=== PATIENT | male | born 1985 | race African-American/Black ===

== ENCOUNTER 2016-11-30 23:19 | Emergency (ER) | payer OTHER | END 2016-11-30 23:30 | disposition left against medical advice (07) | LOC: M ED 23:19 | DX: Z53.29 Procedure and treatment not carried out because of patient's decision for other reasons (principal) ==

== ENCOUNTER 2016-12-05 02:33 | Emergency (ER) | payer OTHER ==
[2016-12-05] MEDS ORDERED: ONDANSETRON 4MG/2ML VIAL (J2405) As Ordered ONE (02:54)
[2016-12-05 03:20] LABS: BASO % 0.2 % (0.0-1.0); EOS # 0.4 K/mm3 (0.0-0.50); EOS % 4.8 % (0.0-3.0); LARGE UNSTAINED CELL # 0.1 K/mm3 (0.0-0.4); LARGE UNSTAINED CELL % 1.4 % (0.0-4.0); LYMPH # 1.2 K/mm3 (1.5-6.5); LYMPH % 13.2 % (24.0-44.0); MEAN CORPUSCULAR HEMOGLOBIN 29.5 pg (27.0-33.0); MEAN CORPUSCULAR HGB CONC 33.7 g/dl (32.0-36.5); MEAN CORPUSCULAR VOLUME 87.5 fl (80.0-96.0); MONO # 0.5 K/mm3 (0.0-0.8); MONO % 5.9 % (0.0-5.0); NEUTROPHILS # 6.7 K/mm3 (1.8-7.7); NEUTROPHILS % 74.4 % (36.0-66.0); PLATELET COUNT, AUTOMATED 291 k/mm3 (150-450); RED CELL DISTRIBUTION WIDTH 12.2 % (11.5-14.5)
[2016-12-05 03:40] LABS: ALKALINE PHOSPHATASE 96 U/L (45-117); ALT/SGPT 31 U/L (12-78); AMYLASE 60 U/L (25-115); ANION GAP 7 MEQ/L (8-16); AST/SGOT 20 U/L (15-37); BILIRUBIN,DIRECT 0.2 MG/DL (0.0-0.2); BILIRUBIN,TOTAL 0.8 MG/DL (0.2-1.0); BLOOD UREA NITROGEN 18 MG/DL (7-18); CALCIUM LEVEL 8.6 MG/DL (8.5-10.1); CARBON DIOXIDE LEVEL 32 MEQ/L (21-32); CHLORIDE LEVEL 105 MEQ/L (98-107); CREATININE FOR GFR 1.08 MG/DL (0.70-1.30); GLOMERULAR FILTRATION RATE > 60.0 (>60); GLUCOSE, FASTING 99 MG/DL (70-105); POTASSIUM SERUM 3.9 MEQ/L (3.5-5.1); SODIUM LEVEL 144 MEQ/L (136-145)
[2016-12-05] MEDS ORDERED: ISOVUE-370 76% 100ML VIAL (Q9967) As Ordered ONE (05:07)
--- NOTE | 2016-12-05 05:50 | REPUSA ---
CLINICAL HISTORY: Abdominal pain. TECHNIQUE: Multiple axial, sagittal and coronal CT images were obtained through the abdomen and pelvi s after administration of intravenous contrast material. COMMENTS: The liver is of uniform attenuation without mass or defect. There is no intra or extrahepatic biliary ductal dilatation. The spleen is normal. The gallbladder is within normal limits. The pancreas is of normal contour and attenuation characteristics. There is no evidence of adrenal mass. Both kidneys demonstrate prompt and equal nephrograms. The kidneys are normal in size, shape and conf iguration. There is no evidence of renal or ureteral mass. No renal or ureteral calculi are identifie d. There is no hydroureter or hydronephrosis. Fluid-filled small and large bowels. No evidence for appendicitis. There is no bowel wall thickening. No evidence for small or large padmini l obstruction. There is no evidence of abdominal ascites or lymphadenopathy. There is no evidence of intrinsic or extrinsic bladder mass. There is no pelvic ascites or lymphadeno faustina. Images of the lung bases show no evidence of pleural or parenchymal mass. There are no pleural effusi ons. The bony structures are free of lytic or blastic lesions. IMPRESSION: Fluid-filled bowel suggestive of enteritis. Thank you for your kind referral of this patient.
[2016-12-05] MEDS ORDERED: HYDROmorphone HCL 1 MG/ML SYRINGE (J1170) As Ordered ONE (06:01)
--- NOTE | 2016-12-05 06:28 | EDDOCDS ---
Physician Documentation [facility] Name: Eddie Bertrand Age: 31 yrs Sex: Male : 1985 Arrival Date: 12/05/2016 Time: 02:33 Bed 6 Private MD: Disposition: 12/05/16 05:56 Discharged to Home/Self Care. Impression: Noninfective gastroenteritis and colitis, unspecified. - Condition is Stable. - Discharge Instructions: Clear Liquid Diet. - Prescriptions for Reglan 10 mg Oral Tablet - take 1 tablet by ORAL route every 6 hours take 30 minutes before meals and at bedtime; 20 tablet. - Medication Reconciliation, Local Pharmacy Hours form. - Follow up: Private Physician; When: Call to arrange an appointment; Reason: Recheck today's complaints. - Problem is new. - Symptoms have improved. Historical: - Allergies: "A med you gave me"; - Home Meds: 1. none - PMHx: none; - PSHx: Hernia repair- Umbilical; - Social history: Smoking status: Patient states former smoker of tobacco. No barriers to communication noted, The patient speaks fluent Monegasque, Speaks appropriately for age. - Family history: Not pertinent. - : The pt / caregiver states he / she is not on anticoagulants. Home medication list is obtained from the patient. - Exposure Risk Screening:: None identified. Vital Signs: 12/05 02:42 BP 154 / 86; Pulse 87; Resp 20; Temp 99.3(O); Pulse Ox 97% on R/A; Weight 99.79 kg / kmg1 220 lbs (R); Height 6 ft. 4 in. (193.04 cm) (R); Pain 10/10; 06:03 BP 149 / 68; Pulse 72; Resp 18; Temp 98.4; Pulse Ox 99% ; Pain 2/10; kb5 06:26 Pain 0/10; js15 02:42 Body Mass Index 26.78 (99.79 kg, 193.04 cm) kmg1 MDM: 03:08 IV Saline Lock ordered. cs11 03:08 NS 0.9% 1000 ml IV at bolus once ordered. cs11 03:08 Ondansetron 4 mg IVP once ordered. cs11 03:08 CBC with Diff Ordered. EDMS 03:08 MED Profile Ordered. EDMS 03:08 Liver Profile Ordered. EDMS 03:08 Amylase Ordered. EDMS 03:08 Lipase Ordered. EDMS 04:27 Financial registration complete. [facility] 04:35 [facility] Payment Agreement was scanned into [email or web address] and attached to record. [facility] 05:01 CBC with Diff Reviewed. 11 05:01 MED Profile Reviewed. cs11 05:01 Liver Profile Reviewed. cs11 05:01 Amylase Reviewed. 11 05:01 Lipase Reviewed. [facility] 05:02 CT ABD & PELVIS: IV Contrast Only Ordered. EDMS 06:01 Dilaudid - HYDROmorphone 0.5 mg IVP once ordered. cs11 Administered Medications: 03:05 Drug: Ondansetron 4 mg [ondansetron HCl 2 mg/mL intravenous solution (2 mL)] Route: js15 IVP; Site: right antecubital; 03:20 Drug: NS 0.9% 1000 ml [sodium chloride 0.9 % intravenous solution] Route: IV; Rate: js15 bolus; Site: right antecubital; 05:30 Follow up: IV Status: Completed infusion; IV Intake: 1000ml js15 06:04 Drug: Dilaudid - HYDROmorphone 0.5 mg [hydromorphone 1 mg/mL injection syringe (0.5 js15 mL)] Route: IVP; Site: right antecubital; 06:26 Follow up: Pain 0/10 Adult; Response: Pain is resolved js15 Signatures: Dispatcher [employer] EDSD Merlyn Machado, RN RN kmg1 Phoenix Shipley, DO [facility] Shruti Ibarra [facility] Karen LoraRN RN js15 The chart was reviewed and I authenticate all verbal orders and agree with the evaluation and treatment provided.Attachments: 04:35 [facility] Payment Agreement [facility] MTDD
--- NOTE | 2016-12-05 06:28 | EDDOCDS ---
Nurse's Notes [facility] Name: Eddie Bertrand Age: 31 yrs Sex: Male : 1985 Arrival Date: 12/05/2016 Time: 02:33 Bed 6 Private MD: Diagnosis: Noninfective gastroenteritis and colitis, unspecified Presentation: 12/05 02:39 Presenting complaint: Patient states: Abdominal distention, cramps, vomiting for 4-5 kmg1 hours. Risk factors: the patient reports not having a history of previous torsion. Suicide/Homicide risk assessment- the patient denies having any suicidal and/or homicidal ideations and does not present with any other emotional, behavioral or mental health complaints. 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 Transition of care: patient was not received from another setting of care. 02:39 Acuity: CHARLES Level 3 kmg1 02:39 Method Of Arrival: Walkin/Carried/Asstd kmg1 03:08 Adult Sepsis Screening: The patient does not have new or worsening altered mentation. js15 Patient's respiratory rate is less than 22. Systolic blood pressure is greater than 100. Patient has a qSOFA score of 0- Negative Sepsis Screen. Triage Assessment: 02:42 General: Appears uncomfortable, Behavior is cooperative. Pain: Location: epigastric kmg1 area, right upper quadrant and left upper quadrant Pain currently is 10 out of 10 on a pain scale. Quality of pain is described as crampy, sharp, Pain began 4 hours ago Alleviated by nothing. HIV screening NA for this visit Offered previously. GI: Abdomen is distended, Abd is soft X 4 quads Abd is tender to palpation in epigastric area, right upper quadrant and left upper quadrant Reports cramping, vomiting. Historical: - Allergies: "A med you gave me"; - Home Meds: 1. none - PMHx: none; - PSHx: Hernia repair- Umbilical; - Social history: Smoking status: Patient states former smoker of tobacco. No barriers to communication noted, The patient speaks fluent Wolof, Speaks appropriately for age. - Family history: Not pertinent. - : The pt / caregiver states he / she is not on anticoagulants. Home medication list is obtained from the patient. - Exposure Risk Screening:: None identified. Screenin:08 Screening information is obtained from the patient. Fall risk: No risks identified. js15 Assistance ADL's: requires no assistance with activities of daily living. Abuse/DV Screen: The patient / caregiver reports he/she is: not in a situation that causes fear, pain or injury. Nutritional screening: No deficits noted. Advance Directives: There is no active DNR order. home support is adequate. Assessment: 03:08 GI: Abdomen is distended, Reports nausea, vomiting. js15 03:09 General: Appears in no apparent distress, uncomfortable, Behavior is appropriate for 17 age, cooperative. Neurological: Level of Consciousness is awake, alert, obeys commands, Oriented to person, place, time. Respiratory: Airway is patent Respiratory effort is even, unlabored, Respiratory pattern is regular, symmetrical. Derm: Skin is normal. 03:10 GI: Bowel sounds present X 4 quads. Abd is tender to palpation in epigastric area, js15 right upper quadrant and left upper quadrant bloated. 04:15 Reassessment: Patient appears in no apparent distress at this time. Patient states js15 feeling better. Pt resting on stretcher, respirations even and unlabored; skin normal, warm, dry. 05:23 Reassessment: returned with pt from CT scan; pt ambulated to stretcher without js15 assistance or difficulty, gait steady; respirations even and unlabored; skin normal, warm, dry. Vital Signs: 02:42 BP 154 / 86; Pulse 87; Resp 20; Temp 99.3(O); Pulse Ox 97% on R/A; Weight 99.79 kg (R); [facility] [place] Height 6 ft. 4 in. (193.04 cm) (R); Pain 10/10; 06:03 BP 149 / 68; Pulse 72; Resp 18; Temp 98.4; Pulse Ox 99% ; Pain 2/10; kb5 06:26 Pain 0/10; js15 02:42 Body Mass Index 26.78 (99.79 kg, 193.04 cm) [facility] [place] Vitals: 02:42 Log In Time: December 05, 2016 at 02:34. [facility] ED Course: 02:34 Patient visited by Kadie Desai, Jalen. hs2 02:34 Patient moved to Waiting hs2 02:41 Triage Initiated [facility] 02:47 Phoenix Shipley DO is Attending Physician. 11 02:47 Patient visited by Phoenix Shipley DO. 11 02:47 Patient moved to 6 km 03:07 Inserted saline lock: 18 gauge in right antecubital area The patient tolerated the js15 procedure well. 03:08 The patient / caregiver is instructed regarding the plan of care and ED course. js15 03:11 Lipase Sent. js15 03:11 Amylase Sent. js15 03:11 Liver Profile Sent. js15 03:11 MED Profile Sent. js15 03:11 CBC with Diff Sent. js15 03:25 Patient visited by Karen Lora RN. js15 04:34 Patient visited by Lj Ludwig PCA. kb5 04:35 [facility] Payment Agreement was scanned into [employer] and attached to record. [facility] 05:21 Patient visited by Karen Lora RN. js15 06:00 No procedures done that require assistance. js15 06:04 Patient visited by Lj Ludwig PCA. kb5 06:05 CT ABD & PELVIS: IV Contrast Only Returned. EDMS Administered Medications: 03:05 Drug: Ondansetron 4 mg [ondansetron HCl 2 mg/mL intravenous solution (2 mL)] Route: js15 IVP; Site: right antecubital; 03:20 Drug: NS 0.9% 1000 ml [sodium chloride 0.9 % intravenous solution] Route: IV; Rate: js15 bolus; Site: right antecubital; 05:30 Follow up: IV Status: Completed infusion; IV Intake: 1000ml js15 06:04 Drug: Dilaudid - HYDROmorphone 0.5 mg [hydromorphone 1 mg/mL injection syringe (0.5 js15 mL)] Route: IVP; Site: right antecubital; 06:26 Follow up: Pain 0/10 Adult; Response: Pain is resolved js15 Intake: 05:30 IV: 1000.00ml; Total: 1000.00ml. js15 Order Results: Lab Order: CBC with Diff; SPEC'M 12/05/16 03:05 Test: WHITE BLOOD COUNT; Value: 9.0; Range: 4.0-10.0; Units: K/mm3; Status: F Test: RED BLOOD COUNT; Value: 5.29; Range: 4.30-6.10; Units: M/mm3; Status: F Test: HEMOGLOBIN; Value: 15.6; Range: 14.0-18.0; Units: g/dl; Status: F Test: HEMATOCRIT; Value: 46.3; Range: 42.0-52.0; Units: %; Status: F Test: MEAN CORPUSCULAR VOLUME; Value: 87.5; Range: 80.0-96.0; Units: fl; Status: F Test: MEAN CORPUSCULAR HEMOGLOBIN; Value: 29.5; Range: 27.0-33.0; Units: pg; Status: F Test: MEAN CORPUSCULAR HGB CONC; Value: 33.7; Range: 32.0-36.5; Units: g/dl; Status: F Test: RED CELL DISTRIBUTION WIDTH; Value: 12.2; Range: 11.5-14.5; Units: %; Status: F Test: PLATELET COUNT, AUTOMATED; Value: 291; Range: 150-450; Units: k/mm3; Status: F Test: NEUTROPHILS %; Value: 74.4; Range: 36.0-66.0; Abnormal: Above high normal; Units: %; Status: F Test: LYMPH %; Value: 13.2; Range: 24.0-44.0; Abnormal: Below low normal; Units: %; Status: F Test: MONO %; Value: 5.9; Range: 0.0-5.0; Abnormal: Above high normal; Units: %; Status: F Test: EOS %; Value: 4.8; Range: 0.0-3.0; Abnormal: Above high normal; Units: %; Status: F Test: BASO %; Value: 0.2; Range: 0.0-1.0; Units: %; Status: F Test: LARGE UNSTAINED CELL %; Value: 1.4; Range: 0.0-4.0; Units: %; Status: F Test: NEUTROPHILS #; Value: 6.7; Range: 1.8-7.7; Units: K/mm3; Status: F Test: LYMPH #; Value: 1.2; Range: 1.5-6.5; Abnormal: Below low normal; Units: K/mm3; Status: F Test: MONO #; Value: 0.5; Range: 0.0-0.8; Units: K/mm3; Status: F Test: EOS #; Value: 0.4; Range: 0.0-0.50; Units: K/mm3; Status: F Test: BASO #; Value: 0.0; Range: 0.0-0.2; Units: K/mm3; Status: F Test: LARGE UNSTAINED CELL #; Value: 0.1; Range: 0.0-0.4; Units: K/mm3; Status: F Lab Order: MED Profile; SPEC'M 12/05/16 03:05 Test: GLUCOSE, FASTING; Value: 99; Range: 70-105; Units: MG/DL; Status: F Test: BLOOD UREA NITROGEN; Value: 18; Range: 7-18; Units: MG/DL; Status: F Test: CREATININE FOR GFR; Value: 1.08; Range: 0.70-1.30; Units: MG/DL; Status: F Test: GLOMERULAR FILTRATION RATE; Value: > 60.0; Range: >60; Status: F Test: SODIUM LEVEL; Value: 144; Range: 136-145; Units: MEQ/L; Status: F Test: POTASSIUM SERUM; Value: 3.9; Range: 3.5-5.1; Units: MEQ/L; Status: F Test: CHLORIDE LEVEL; Value: 105; Range: 98-107; Units: MEQ/L; Status: F Test: CARBON DIOXIDE LEVEL; Value: 32; Range: 21-32; Units: MEQ/L; Status: F Test: ANION GAP; Value: 7; Range: 8-16; Abnormal: Below low normal; Units: MEQ/L; Status: F Test: CALCIUM LEVEL; Value: 8.6; Range: 8.5-10.1; Units: MG/DL; Status: F Test Note: ; Units are mL/min/1.73 m2 Chronic Kidney Disease Staging per NKF: Stage I & II GFR >=60 Normal to Mildly Decreased Stage III GFR 30-59 Moderately Decreased Stage IV GFR 15-29 Severely Decreased Stage V GFR <15 Very Little GFR Left ESRD GFR <15 on GRAIN COMBINE DRIVER Lab Order: Liver Profile; SPEC'M 12/05/16 03:05 Test: AST/SGOT; Value: 20; Range: 15-37; Units: U/L; Status: F Test: ALT/SGPT; Value: 31; Range: 12-78; Units: U/L; Status: F Test: ALKALINE PHOSPHATASE; Value: 96; Range: 45-117; Units: U/L; Status: F Test: BILIRUBIN,TOTAL; Value: 0.8; Range: 0.2-1.0; Units: MG/DL; Status: F Test: BILIRUBIN,DIRECT; Value: 0.2; Range: 0.0-0.2; Units: MG/DL; Status: F Test: TOTAL PROTEIN; Value: 8.0; Range: 6.4-8.2; Units: GM/DL; Status: F Test: ALBUMIN; Value: 4.0; Range: 3.2-5.2; Units: GM/DL; Status: F Test: ALBUMIN/GLOBULIN RATIO; Value: 1.00; Range: 1.00-1.93; Status: F Lab Order: Amylase; SPEC'M 12/05/16 03:05 Test: AMYLASE; Value: 60; Range: 25-115; Units: U/L; Status: F Lab Order: Lipase; SPEC'M 12/05/16 03:05 Test: LIPASE; Value: 201; Range: 73-393; Units: U/L; Status: F Radiology Order: CT ABD & PELVIS: IV Contrast Only Test: CT ABD & PELVIS: IV Contrast Only REASON FOR EXAMINATION: Abdomen Pain; ; CLINICAL HISTORY: Abdominal pain.; TECHNIQUE: Multiple axial, sagittal and coronal CT images were obtained through the abdomen and pelvi; s after administration of intravenous contrast material.; COMMENTS:; The liver is of uniform attenuation without mass or defect. There is no intra or extrahepatic biliary; ductal dilatation. The spleen is normal. The gallbladder is within normal limits. The pancreas is of; normal contour and attenuation characteristics. There is no evidence of adrenal mass.; Both kidneys demonstrate prompt and equal nephrograms. The kidneys are normal in size, shape and conf; iguration. There is no evidence of renal or ureteral mass. No renal or ureteral calculi are identifie; d. There is no hydroureter or hydronephrosis. Fluid-filled small and large bowels.; No evidence for appendicitis. There is no bowel wall thickening. No evidence for small or large padmini; l obstruction. There is no evidence of abdominal ascites or lymphadenopathy.; There is no evidence of intrinsic or extrinsic bladder mass. There is no pelvic ascites or lymphadeno; faustina.; Images of the lung bases show no evidence of pleural or parenchymal mass. There are no pleural effusi; ons.; The bony structures are free of lytic or blastic lesions.; IMPRESSION:; Fluid-filled bowel suggestive of enteritis.; Thank you for your kind referral of this patient.; ; Outcome: 05:56 Discharge ordered by Provider. cs11 06:00 CT Study completed. js15 06:27 Discharge Assessment: Patient awake, alert and oriented x 3. No cognitive and/or js15 functional deficits noted. Patient verbalized understanding of disposition instructions. patient administered narcotics - yes. Pt provided with safe discharge. The following High Risk Discharge criteria are identified: None. Discharged to home ambulatory, with significant other. Condition: stable. Discharge instructions given to patient, Instructed on discharge instructions, follow up and referral plans. medication usage, diet, Demonstrated understanding of instructions, medications, diet Pt was receptive of discharge instructions/ teaching. Prescriptions given X 1. Property sent home with patient. 06:27 Patient left the ED. js15 Signatures: Dispatcher [employer] EDMS Merlyn Machado, RN RN kmg1 Lj Ludwig, PHARMACY SERVICE ASSOCIATE PHARMACY SERVICE ASSOCIATE kb5 Phoenix Shipley, DO 11 Shruti Ibarra JuliaRN RN js15 Kadie Desai, Reg Reg hs2 Corrections: (The following items were deleted from the chart) 03:09 03:08 GI: Abdomen is js15 js15 03:11 03:08 GI: Abdomen is distended, Reports nausea, vomiting, js15 js15 05:23 03:10 GI: Bowel sounds present X 4 quads. js15 js15 MTDD
--- NOTE | 2016-12-07 07:28 | EDDOCDS ---
Physician Documentation [facility] Name: Eddie Bertrand Age: 31 yrs Sex: Male : 1985 Arrival Date: 12/05/2016 Time: 02:33 Bed 6 Private MD: Disposition: 12/05/16 05:56 Discharged to Home/Self Care. Impression: Noninfective gastroenteritis and colitis, unspecified. - Condition is Stable. - Discharge Instructions: Clear Liquid Diet. - Prescriptions for Reglan 10 mg Oral Tablet - take 1 tablet by ORAL route every 6 hours take 30 minutes before meals and at bedtime; 20 tablet. - Medication Reconciliation, Local Pharmacy Hours form. - Follow up: Private Physician; When: Call to arrange an appointment; Reason: Recheck today's complaints. - Problem is new. - Symptoms have improved. Historical: - Allergies: "A med you gave me"; - Home Meds: 1. none - PMHx: none; - PSHx: Hernia repair- Umbilical; - Social history: Smoking status: Patient states former smoker of tobacco. No barriers to communication noted, The patient speaks fluent Turkmen, Speaks appropriately for age. - Family history: Not pertinent. - : The pt / caregiver states he / she is not on anticoagulants. Home medication list is obtained from the patient. - Exposure Risk Screening:: None identified. Vital Signs: 12/05 02:42 BP 154 / 86; Pulse 87; Resp 20; Temp 99.3(O); Pulse Ox 97% on R/A; Weight 99.79 kg / kmg1 220 lbs (R); Height 6 ft. 4 in. (193.04 cm) (R); Pain 10/10; 06:03 BP 149 / 68; Pulse 72; Resp 18; Temp 98.4; Pulse Ox 99% ; Pain 2/10; kb5 06:26 Pain 0/10; js15 02:42 Body Mass Index 26.78 (99.79 kg, 193.04 cm) kmg1 MDM: 03:08 IV Saline Lock ordered. cs11 03:08 NS 0.9% 1000 ml IV at bolus once ordered. cs11 03:08 Ondansetron 4 mg IVP once ordered. cs11 03:08 CBC with Diff Ordered. EDMS 03:08 MED Profile Ordered. EDMS 03:08 Liver Profile Ordered. EDMS 03:08 Amylase Ordered. EDMS 03:08 Lipase Ordered. EDMS 04:27 Financial registration complete. [facility] 04:35 [facility] Payment Agreement was scanned into [employer] and attached to record. [facility] 05:01 CBC with Diff Reviewed. 11 05:01 MED Profile Reviewed. cs11 05:01 Liver Profile Reviewed. cs11 05:01 Amylase Reviewed. 11 05:01 Lipase Reviewed. 11 05:02 CT ABD & PELVIS: IV Contrast Only Ordered. EDMS 06:01 Dilaudid - HYDROmorphone 0.5 mg IVP once ordered. [facility] 14:36 T-Sheet-- Draft Copy was scanned into [employer] and attached to record. 14:36 Radiology Report was scanned into [employer] and attached to record. Administered Medications: 03:05 Drug: Ondansetron 4 mg [ondansetron HCl 2 mg/mL intravenous solution (2 mL)] Route: js15 IVP; Site: right antecubital; 03:20 Drug: NS 0.9% 1000 ml [sodium chloride 0.9 % intravenous solution] Route: IV; Rate: js15 bolus; Site: right antecubital; 05:30 Follow up: IV Status: Completed infusion; IV Intake: 1000ml js15 06:04 Drug: Dilaudid - HYDROmorphone 0.5 mg [hydromorphone 1 mg/mL injection syringe (0.5 js15 mL)] Route: IVP; Site: right antecubital; 06:26 Follow up: Pain 0/10 Adult; Response: Pain is resolved js15 Signatures: Dispatcher [employer] EDMS Merlyn Machado, RN RN kmg1 Marisol Salter, Reg Reg Phoenix Shipley, DO cs11 Shruti Ibarra [facility] Karen LoraRN RN js15 The chart was reviewed and I authenticate all verbal orders and agree with the evaluation and treatment provided.Attachments: 04:35 [facility] Payment Agreement [facility] 14:36 T-Sheet-- Draft Copy Chart Complete MTDD
--- NOTE | 2016-12-07 07:28 | EDDOCDS ---
Nurse's Notes [facility] Name: Eddie Bertrand Age: 31 yrs Sex: Male : 1985 Arrival Date: 12/05/2016 Time: 02:33 Bed 6 Private MD: Diagnosis: Noninfective gastroenteritis and colitis, unspecified Presentation: 12/05 02:39 Presenting complaint: Patient states: Abdominal distention, cramps, vomiting for 4-5 kmg1 hours. Risk factors: the patient reports not having a history of previous torsion. Suicide/Homicide risk assessment- the patient denies having any suicidal and/or homicidal ideations and does not present with any other emotional, behavioral or mental health complaints. Status: Patient is not a policy service coordinator or dependent. Transition of care: patient was not received from another setting of care. 02:39 Acuity: CHARLES Level 3 kmg1 02:39 Method Of Arrival: Walkin/Carried/Asstd kmg1 03:08 Adult Sepsis Screening: The patient does not have new or worsening altered mentation. js15 Patient's respiratory rate is less than 22. Systolic blood pressure is greater than 100. Patient has a qSOFA score of 0- Negative Sepsis Screen. Triage Assessment: 02:42 General: Appears uncomfortable, Behavior is cooperative. Pain: Location: epigastric kmg1 area, right upper quadrant and left upper quadrant Pain currently is 10 out of 10 on a pain scale. Quality of pain is described as crampy, sharp, Pain began 4 hours ago Alleviated by nothing. HIV screening NA for this visit Offered previously. GI: Abdomen is distended, Abd is soft X 4 quads Abd is tender to palpation in epigastric area, right upper quadrant and left upper quadrant Reports cramping, vomiting. Historical: - Allergies: "A med you gave me"; - Home Meds: 1. none - PMHx: none; - PSHx: Hernia repair- Umbilical; - Social history: Smoking status: Patient states former smoker of tobacco. No barriers to communication noted, The patient speaks fluent Khmer, Speaks appropriately for age. - Family history: Not pertinent. - : The pt / caregiver states he / she is not on anticoagulants. Home medication list is obtained from the patient. - Exposure Risk Screening:: None identified. Screenin:08 Screening information is obtained from the patient. Fall risk: No risks identified. js15 Assistance ADL's: requires no assistance with activities of daily living. Abuse/DV Screen: The patient / caregiver reports he/she is: not in a situation that causes fear, pain or injury. Nutritional screening: No deficits noted. Advance Directives: There is no active DNR order. home support is adequate. Assessment: 03:08 GI: Abdomen is distended, Reports nausea, vomiting. js15 03:09 General: Appears in no apparent distress, uncomfortable, Behavior is appropriate for 17 age, cooperative. Neurological: Level of Consciousness is awake, alert, obeys commands, Oriented to person, place, time. Respiratory: Airway is patent Respiratory effort is even, unlabored, Respiratory pattern is regular, symmetrical. Derm: Skin is normal. 03:10 GI: Bowel sounds present X 4 quads. Abd is tender to palpation in epigastric area, js15 right upper quadrant and left upper quadrant bloated. 04:15 Reassessment: Patient appears in no apparent distress at this time. Patient states js15 feeling better. Pt resting on stretcher, respirations even and unlabored; skin normal, warm, dry. 05:23 Reassessment: returned with pt from CT scan; pt ambulated to stretcher without js15 assistance or difficulty, gait steady; respirations even and unlabored; skin normal, warm, dry. Vital Signs: 02:42 BP 154 / 86; Pulse 87; Resp 20; Temp 99.3(O); Pulse Ox 97% on R/A; Weight 99.79 kg (R); [facility] Height 6 ft. 4 in. (193.04 cm) (R); Pain 10/10; 06:03 BP 149 / 68; Pulse 72; Resp 18; Temp 98.4; Pulse Ox 99% ; Pain 2/10; kb5 06:26 Pain 0/10; js15 02:42 Body Mass Index 26.78 (99.79 kg, 193.04 cm) [facility] Vitals: 02:42 Log In Time: December 05, 2016 at 02:34. [facility] [place] Course: 02:34 Patient visited by Kadie Desai, Jalen. hs2 02:34 Patient moved to Waiting hs2 02:41 Triage Initiated [facility] 02:47 Phoenix Shipley DO is Attending Physician. 11 02:47 Patient visited by Phoenix Shipley DO. 11 02:47 Patient moved to 6 km 03:07 Inserted saline lock: 18 gauge in right antecubital area The patient tolerated the js15 procedure well. 03:08 The patient / caregiver is instructed regarding the plan of care and ED course. js15 03:11 Lipase Sent. js15 03:11 Amylase Sent. js15 03:11 Liver Profile Sent. js15 03:11 MED Profile Sent. js15 03:11 CBC with Diff Sent. js15 03:25 Patient visited by Karen Lora RN. js15 04:34 Patient visited by Lj Ludwig PCA. kb5 04:35 [facility] Payment Agreement was scanned into [employer] and attached to record. [facility] 05:21 Patient visited by Karen Lora RN. js15 06:00 No procedures done that require assistance. js15 06:04 Patient visited by Lj Ludwig PCA. kb5 06:05 CT ABD & PELVIS: IV Contrast Only Returned. EDMS 14:36 T-Sheet-- Draft Copy was scanned into [employer] and attached to record. gb 14:36 Radiology Report was scanned into [employer] and attached to record. gb Administered Medications: 03:05 Drug: Ondansetron 4 mg [ondansetron HCl 2 mg/mL intravenous solution (2 mL)] Route: js15 IVP; Site: right antecubital; 03:20 Drug: NS 0.9% 1000 ml [sodium chloride 0.9 % intravenous solution] Route: IV; Rate: js15 bolus; Site: right antecubital; 05:30 Follow up: IV Status: Completed infusion; IV Intake: 1000ml js15 06:04 Drug: Dilaudid - HYDROmorphone 0.5 mg [hydromorphone 1 mg/mL injection syringe (0.5 js15 mL)] Route: IVP; Site: right antecubital; 06:26 Follow up: Pain 0/10 Adult; Response: Pain is resolved js15 Intake: 05:30 IV: 1000.00ml; Total: 1000.00ml. js15 Order Results: Lab Order: CBC with Diff; SPEC'M 12/05/16 03:05 Test: WHITE BLOOD COUNT; Value: 9.0; Range: 4.0-10.0; Units: K/mm3; Status: F Test: RED BLOOD COUNT; Value: 5.29; Range: 4.30-6.10; Units: M/mm3; Status: F Test: HEMOGLOBIN; Value: 15.6; Range: 14.0-18.0; Units: g/dl; Status: F Test: HEMATOCRIT; Value: 46.3; Range: 42.0-52.0; Units: %; Status: F Test: MEAN CORPUSCULAR VOLUME; Value: 87.5; Range: 80.0-96.0; Units: fl; Status: F Test: MEAN CORPUSCULAR HEMOGLOBIN; Value: 29.5; Range: 27.0-33.0; Units: pg; Status: F Test: MEAN CORPUSCULAR HGB CONC; Value: 33.7; Range: 32.0-36.5; Units: g/dl; Status: F Test: RED CELL DISTRIBUTION WIDTH; Value: 12.2; Range: 11.5-14.5; Units: %; Status: F Test: PLATELET COUNT, AUTOMATED; Value: 291; Range: 150-450; Units: k/mm3; Status: F Test: NEUTROPHILS %; Value: 74.4; Range: 36.0-66.0; Abnormal: Above high normal; Units: %; Status: F Test: LYMPH %; Value: 13.2; Range: 24.0-44.0; Abnormal: Below low normal; Units: %; Status: F Test: MONO %; Value: 5.9; Range: 0.0-5.0; Abnormal: Above high normal; Units: %; Status: F Test: EOS %; Value: 4.8; Range: 0.0-3.0; Abnormal: Above high normal; Units: %; Status: F Test: BASO %; Value: 0.2; Range: 0.0-1.0; Units: %; Status: F Test: LARGE UNSTAINED CELL %; Value: 1.4; Range: 0.0-4.0; Units: %; Status: F Test: NEUTROPHILS #; Value: 6.7; Range: 1.8-7.7; Units: K/mm3; Status: F Test: LYMPH #; Value: 1.2; Range: 1.5-6.5; Abnormal: Below low normal; Units: K/mm3; Status: F Test: MONO #; Value: 0.5; Range: 0.0-0.8; Units: K/mm3; Status: F Test: EOS #; Value: 0.4; Range: 0.0-0.50; Units: K/mm3; Status: F Test: BASO #; Value: 0.0; Range: 0.0-0.2; Units: K/mm3; Status: F Test: LARGE UNSTAINED CELL #; Value: 0.1; Range: 0.0-0.4; Units: K/mm3; Status: F Lab Order: MED Profile; SPEC'M 12/05/16 03:05 Test: GLUCOSE, FASTING; Value: 99; Range: 70-105; Units: MG/DL; Status: F Test: BLOOD UREA NITROGEN; Value: 18; Range: 7-18; Units: MG/DL; Status: F Test: CREATININE FOR GFR; Value: 1.08; Range: 0.70-1.30; Units: MG/DL; Status: F Test: GLOMERULAR FILTRATION RATE; Value: > 60.0; Range: >60; Status: F Test: SODIUM LEVEL; Value: 144; Range: 136-145; Units: MEQ/L; Status: F Test: POTASSIUM SERUM; Value: 3.9; Range: 3.5-5.1; Units: MEQ/L; Status: F Test: CHLORIDE LEVEL; Value: 105; Range: 98-107; Units: MEQ/L; Status: F Test: CARBON DIOXIDE LEVEL; Value: 32; Range: 21-32; Units: MEQ/L; Status: F Test: ANION GAP; Value: 7; Range: 8-16; Abnormal: Below low normal; Units: MEQ/L; Status: F Test: CALCIUM LEVEL; Value: 8.6; Range: 8.5-10.1; Units: MG/DL; Status: F Test Note: ; Units are mL/min/1.73 m2 Chronic Kidney Disease Staging per NKF: Stage I & II GFR >=60 Normal to Mildly Decreased Stage III GFR 30-59 Moderately Decreased Stage IV GFR 15-29 Severely Decreased Stage V GFR <15 Very Little GFR Left ESRD GFR <15 on MONEY ORDER CLERK Lab Order: Liver Profile; SPEC'M 12/05/16 03:05 Test: AST/SGOT; Value: 20; Range: 15-37; Units: U/L; Status: F Test: ALT/SGPT; Value: 31; Range: 12-78; Units: U/L; Status: F Test: ALKALINE PHOSPHATASE; Value: 96; Range: 45-117; Units: U/L; Status: F Test: BILIRUBIN,TOTAL; Value: 0.8; Range: 0.2-1.0; Units: MG/DL; Status: F Test: BILIRUBIN,DIRECT; Value: 0.2; Range: 0.0-0.2; Units: MG/DL; Status: F Test: TOTAL PROTEIN; Value: 8.0; Range: 6.4-8.2; Units: GM/DL; Status: F Test: ALBUMIN; Value: 4.0; Range: 3.2-5.2; Units: GM/DL; Status: F Test: ALBUMIN/GLOBULIN RATIO; Value: 1.00; Range: 1.00-1.93; Status: F Lab Order: Amylase; SPEC'M 12/05/16 03:05 Test: AMYLASE; Value: 60; Range: 25-115; Units: U/L; Status: F Lab Order: Lipase; SPEC'M 12/05/16 03:05 Test: LIPASE; Value: 201; Range: 73-393; Units: U/L; Status: F Radiology Order: CT ABD & PELVIS: IV Contrast Only Test: CT ABD & PELVIS: IV Contrast Only REASON FOR EXAMINATION: Abdomen Pain; ; CLINICAL HISTORY: Abdominal pain.; TECHNIQUE: Multiple axial, sagittal and coronal CT images were obtained through the abdomen and pelvi; s after administration of intravenous contrast material.; COMMENTS:; The liver is of uniform attenuation without mass or defect. There is no intra or extrahepatic biliary; ductal dilatation. The spleen is normal. The gallbladder is within normal limits. The pancreas is of; normal contour and attenuation characteristics. There is no evidence of adrenal mass.; Both kidneys demonstrate prompt and equal nephrograms. The kidneys are normal in size, shape and conf; iguration. There is no evidence of renal or ureteral mass. No renal or ureteral calculi are identifie; d. There is no hydroureter or hydronephrosis. Fluid-filled small and large bowels.; No evidence for appendicitis. There is no bowel wall thickening. No evidence for small or large padmini; l obstruction. There is no evidence of abdominal ascites or lymphadenopathy.; There is no evidence of intrinsic or extrinsic bladder mass. There is no pelvic ascites or lymphadeno; faustina.; Images of the lung bases show no evidence of pleural or parenchymal mass. There are no pleural effusi; ons.; The bony structures are free of lytic or blastic lesions.; IMPRESSION:; Fluid-filled bowel suggestive of enteritis.; Thank you for your kind referral of this patient.; ; Outcome: 05:56 Discharge ordered by Provider. cs11 06:00 CT Study completed. js15 06:27 Discharge Assessment: Patient awake, alert and oriented x 3. No cognitive and/or js15 functional deficits noted. Patient verbalized understanding of disposition instructions. patient administered narcotics - yes. Pt provided with safe discharge. The following High Risk Discharge criteria are identified: None. Discharged to home ambulatory, with significant other. Condition: stable. Discharge instructions given to patient, Instructed on discharge instructions, follow up and referral plans. medication usage, diet, Demonstrated understanding of instructions, medications, diet Pt was receptive of discharge instructions/ teaching. Prescriptions given X 1. Property sent home with patient. 06:27 Patient left the ED. js15 Signatures: Dispatcher [employer] EDMS Merlyn Machado, RN RN kmg1 Marisol Salter, Reg Reg gb Lj Ludwig, ERGONOMICS CONSULTANT ERGONOMICS CONSULTANT kb5 Phoenix Shipley, DO DO cs11 Shruti Ibarra JuliaRN RN js15 Kadie Desai, Reg Reg hs2 Corrections: (The following items were deleted from the chart) 03:09 03:08 GI: Abdomen is js15 js15 03:11 03:08 GI: Abdomen is distended, Reports nausea, vomiting, js15 js15 05:23 03:10 GI: Bowel sounds present X 4 quads. js15 js15 Chart Complete MTDD
--- NOTE | 2016-12-07 07:28 | EDDOCDS ---
Physician Documentation [facility] Name: Eddie Bertrand Age: 31 yrs Sex: Male : 1985 Arrival Date: 12/05/2016 Time: 02:33 Bed 6 Private MD: Disposition: 12/05/16 05:56 Discharged to Home/Self Care. Impression: Noninfective gastroenteritis and colitis, unspecified. - Condition is Stable. - Discharge Instructions: Clear Liquid Diet. - Prescriptions for Reglan 10 mg Oral Tablet - take 1 tablet by ORAL route every 6 hours take 30 minutes before meals and at bedtime; 20 tablet. - Medication Reconciliation, Local Pharmacy Hours form. - Follow up: Private Physician; When: Call to arrange an appointment; Reason: Recheck today's complaints. - Problem is new. - Symptoms have improved. Historical: - Allergies: "A med you gave me"; - Home Meds: 1. none - PMHx: none; - PSHx: Hernia repair- Umbilical; - Social history: Smoking status: Patient states former smoker of tobacco. No barriers to communication noted, The patient speaks fluent Latvian, Speaks appropriately for age. - Family history: Not pertinent. - : The pt / caregiver states he / she is not on anticoagulants. Home medication list is obtained from the patient. - Exposure Risk Screening:: None identified. Vital Signs: 12/05 02:42 BP 154 / 86; Pulse 87; Resp 20; Temp 99.3(O); Pulse Ox 97% on R/A; Weight 99.79 kg / kmg1 220 lbs (R); Height 6 ft. 4 in. (193.04 cm) (R); Pain 10/10; 06:03 BP 149 / 68; Pulse 72; Resp 18; Temp 98.4; Pulse Ox 99% ; Pain 2/10; kb5 06:26 Pain 0/10; js15 02:42 Body Mass Index 26.78 (99.79 kg, 193.04 cm) kmg1 MDM: 03:08 IV Saline Lock ordered. cs11 03:08 NS 0.9% 1000 ml IV at bolus once ordered. cs11 03:08 Ondansetron 4 mg IVP once ordered. cs11 03:08 CBC with Diff Ordered. EDMS 03:08 MED Profile Ordered. EDMS 03:08 Liver Profile Ordered. EDMS 03:08 Amylase Ordered. EDMS 03:08 Lipase Ordered. EDMS 04:27 Financial registration complete. [facility] 04:35 [facility] Payment Agreement was scanned into [employer] and attached to record. [facility] 05:01 CBC with Diff Reviewed. 11 05:01 MED Profile Reviewed. cs11 05:01 Liver Profile Reviewed. cs11 05:01 Amylase Reviewed. 11 05:01 Lipase Reviewed. 11 05:02 CT ABD & PELVIS: IV Contrast Only Ordered. EDMS 06:01 Dilaudid - HYDROmorphone 0.5 mg IVP once ordered. [facility] 14:36 T-Sheet-- Draft Copy was scanned into [employer] and attached to record. 14:36 Radiology Report was scanned into [employer] and attached to record. Administered Medications: 03:05 Drug: Ondansetron 4 mg [ondansetron HCl 2 mg/mL intravenous solution (2 mL)] Route: js15 IVP; Site: right antecubital; 03:20 Drug: NS 0.9% 1000 ml [sodium chloride 0.9 % intravenous solution] Route: IV; Rate: js15 bolus; Site: right antecubital; 05:30 Follow up: IV Status: Completed infusion; IV Intake: 1000ml js15 06:04 Drug: Dilaudid - HYDROmorphone 0.5 mg [hydromorphone 1 mg/mL injection syringe (0.5 js15 mL)] Route: IVP; Site: right antecubital; 06:26 Follow up: Pain 0/10 Adult; Response: Pain is resolved js15 Signatures: Dispatcher [employer] EDMS Merlyn Machado, RN RN kmg1 Marisol Salter, Reg Reg Phoenix Shipley, DO cs11 Shruti Ibarra [facility] Karen LoraRN RN js15 The chart was reviewed and I authenticate all verbal orders and agree with the evaluation and treatment provided.Attachments: 04:35 [facility] Payment Agreement [facility] 14:36 T-Sheet-- Draft Copy Chart Complete MTDD
== END 2016-12-05 06:27 | disposition home or self-care (01) ==
LOC: M ED 02:33
DX: K52.9 Noninfective gastroenteritis and colitis, unspecified (principal); Z87.891 Personal history of nicotine dependence
CPT/HCPCS: 74177; 80048; 80076; 82150; 83690; 85025; 96361; 96374; 96375; 99284; J1170; J2405; Q9967

== ENCOUNTER → 2017-03-31 | Outpatient (REF) | LOC: M LAB 10:41 | PROVIDERS: ATTEND Nurse Practitioner Adult Health | DX: Z02.89 Encounter for other administrative examinations (principal) ==

== ENCOUNTER 2017-04-11 05:11 | Emergency (ER) | payer OTHER, SELFPAY ==
[~2017-04-11] VITALS: Ht 193 cm; Wt 108.9 kg
[2017-04-11] MEDS ORDERED: methylPREDNISolone INJ 125 MG/2 ML VIAL (J2930) IM ONE (05:30)
[2017-04-11] MEDS ORDERED: IPRATROPIUM 0.5MG/ALBUTEROL 2.5MG INH SOL UD 3ML (DUONEB)(J7620) NEB ONE (05:30)
[2017-04-11] MEDS ORDERED: PRED20TA PO (05:54)
[2017-04-11 06:04] VITALS: BP 152/91
--- NOTE | 2017-04-11 08:04 | REP ---
Clinical: Dyspnea . Comparison: 04/03/2016 . Technique: PA and lateral. Findings: The mediastinum and cardiac silhouette are normal. The lung obrien are clear and without acute consolidation, effusion, or pneumothorax. The skeletal structures are intact and normal. Impression: 1. No acute cardiopulmonary process. Signed by Quentin Carballo MD 04/11/2017 07:56 A
== END 2017-04-11 06:10 | disposition home or self-care (01) ==
LOC: M ED 06:06
DX: J20.9 Acute bronchitis, unspecified (principal)
CPT/HCPCS: 71020; 96372; 99282; J2930

== ENCOUNTER 2017-04-22 00:12 | Emergency (ER) | payer SELFPAY ==
[~2017-04-22 00:12] MED LIST: PRED20TA PO
[2017-04-22 00:19] VITALS: BP 165/93
== END 2017-04-22 02:54 | disposition left against medical advice (07) ==
LOC: M ED 00:12
DX: Z53.29 Procedure and treatment not carried out because of patient's decision for other reasons (principal)

== ENCOUNTER 2017-04-22 14:03 | Emergency (ER) | payer SELFPAY ==
[~2017-04-22] VITALS: Ht 193 cm; Wt 102.1 kg
--- NOTE | 2017-04-22 15:09 | ED PDOC ---
Post-Departure Follow-Up PT STATES HE WAS WATCHING A BASKETBALL GAME LAST NIGHT AND HIS TEAM LOST SO HE TOOK A PLATE AND BROKE IT OVER HIS RIGHT THIGH, CAUSING A LACERATION TO THIS AREA. STATES THIS OCCURRED AT APPROXIMATELY MIDNIGHT LAST NIGHT AND HE PRESENTED TO THE ER AT 0030. STATES, "THERE WAS A TRAUMA HERE AND IT WAS TAKING TOO LONG SO I JUST WENT HOME." STATES PUT BANDAGES OVER THIS AREA AND RETURNS AT THIS TIME TO HAVE THE WOUND EVALUATED. 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 RYAN TOBAR PA-C Apr 22, 2017 15:09
[2017-04-22 15:44] VITALS: BP 163/72
== END 2017-04-22 15:34 | disposition home or self-care (01) ==
LOC: M ED 15:11
DX: S71.111A Laceration without foreign body, right thigh, initial encounter (principal); W25.XXXA Contact with sharp glass, initial encounter; Y92.019 Unspecified place in single-family (private) house as the place of occurrence of the external cause; Y93.89 Activity, other specified; Y99.9 Unspecified external cause status

== ENCOUNTER 2018-03-04 00:31 | Emergency (ER) | payer MEDICAID, SELFPAY, BC ==
[2018-03-04] MEDS: AUGMENTIN 875 MG TAB PO ×2 (01:45)
== END 2018-03-04 02:03 | disposition home or self-care (01) ==
LOC: M ED 00:31
DX: J01.90 Acute sinusitis, unspecified (principal); J45.909 Unspecified asthma, uncomplicated; F17.200 Nicotine dependence, unspecified, uncomplicated
CPT/HCPCS: 99283

== ENCOUNTER 2018-04-07 00:11 | Emergency (ER) | payer MEDICAID, SELFPAY ==
[2018-04-07] MEDS: NAPROXEN 250 MG TAB PO (06:19)
== END 2018-04-07 06:22 | disposition home or self-care (01) ==
LOC: M ED 00:11
DX: S93.401A Sprain of unspecified ligament of right ankle, initial encounter (principal); X50.1XXA Overexertion from prolonged static or awkward postures, initial encounter; Y92.410 Unspecified street and highway as the place of occurrence of the external cause; Y93.9 Activity, unspecified; Y99.9 Unspecified external cause status; Z72.0 Tobacco use; Z79.899 Other long term (current) drug therapy
CPT/HCPCS: 73610

== ENCOUNTER 2018-09-03 09:47 | Emergency (ER) | payer MEDICAID | END 2018-09-03 10:27 | disposition home or self-care (01) | LOC: M ED 09:47 | DX: S91.115A Laceration without foreign body of left lesser toe(s) without damage to nail, initial encounter (principal); X58.XXXA Exposure to other specified factors, initial encounter; Y92.099 Unspecified place in other non-institutional residence as the place of occurrence of the external cause; Y93.9 Activity, unspecified; Y99.9 Unspecified external cause status | CPT/HCPCS: 99283 ==

== ENCOUNTER 2018-09-06 13:19 | Emergency (ER) | payer OTHER, MEDICAID | END 2018-09-06 14:28 | disposition home or self-care (01) | LOC: M ED 13:19 | DX: L03.032 Cellulitis of left toe (principal) | CPT/HCPCS: 99283 ==

== ENCOUNTER → 2020-03-20 | Outpatient (CLI) | payer OTHER ==
[~2020-03-20] MED LIST changes: +ALBU83IN INH; +AUGM875T28 PO; +DOXY100C37 PO; +KEFL500C17 PO; +MOTR200T44 PO; +NAPR-837 PO
[2020-03-20 13:06] LABS: BASO # 0.1 10^3/uL (0.0-0.2); EOS # 0.7 10^3/uL (0.0-0.5); EOS % 7.5 % (0.0-3.0); HEMATOCRIT 43.5 % (42.0-52.0); HEMOGLOBIN 14.8 g/dl (13.5-17.5); LYMPH # 2.6 10^3/uL (1.5-5.0); MEAN CORPUSCULAR HEMOGLOBIN 30.1 pg (27.0-33.0); MEAN CORPUSCULAR VOLUME 88.6 fl (80.0-96.0); MONO # 0.5 10^3/uL (0.0-0.8); MONO % 5.7 % (0.0-5.0); NEUTROPHILS # 4.9 10^3/uL (1.5-8.5); NEUTROPHILS % 55.3 % (36.0-66.0); PLATELET COUNT, AUTOMATED 339 10^3/uL (150-450); RED BLOOD COUNT 4.91 10^6/uL (4.30-6.10); WHITE BLOOD COUNT 8.8 10^3/uL (4.0-10.0)
[2020-03-20 13:26] LABS: C REACTIVE PROTEIN QUANTITATIV < 0.30 MG/DL (0.00-0.30); RHEUMATOID FACTOR QUANT < 10.0 IU/ML (<15.0); URIC ACID 4.5 MG/DL (3.5-7.2)
[2020-03-20 13:44] LABS: ERYTHROCYTE SEDIMENTATION RATE 5 mm/hr (0-15)
[2020-03-22 00:06] LABS: ANTINUCLEAR ANTIBODIES DIRECT Negative (Negative); Lyme Disease IgG/IgM Antibodie <0.91 ISR (0.00-0.90); Lyme Disease IgM Ab Quantitati <0.80 index (0.00-0.79)
== END ==
LOC: M LAB 12:18
PROVIDERS: ATTEND Physician Assistant Surgical
DX: M79.671 Pain in right foot (principal)

== ENCOUNTER 2020-03-29 23:39 | Emergency (ER) | payer OTHER ==
[~2020-03-29] VITALS: Ht 193 cm; Wt 97.7 kg
[2020-03-30 01:06] LABS: BASO # 0.1 10^3/uL (0.0-0.2); BASO % 0.7 % (0.0-1.0); EOS # 0.8 10^3/uL (0.0-0.5); EOS % 7.5 % (0.0-3.0); HEMATOCRIT 41.4 % (42.0-52.0); HEMOGLOBIN 13.8 g/dl (13.5-17.5); LYMPH # 3.4 10^3/uL (1.5-5.0); MEAN CORPUSCULAR HEMOGLOBIN 29.2 pg (27.0-33.0); MEAN CORPUSCULAR HGB CONC 33.3 g/dl (32.0-36.5); MEAN CORPUSCULAR VOLUME 87.7 fl (80.0-96.0); MONO # 0.6 10^3/uL (0.0-0.8); MONO % 6.3 % (0.0-5.0); NEUTROPHILS # 5.3 10^3/uL (1.5-8.5); NEUTROPHILS % 52.2 % (36.0-66.0); PLATELET COUNT, AUTOMATED 355 10^3/uL (150-450); RED BLOOD COUNT 4.72 10^6/uL (4.30-6.10); WHITE BLOOD COUNT 10.2 10^3/uL (4.0-10.0)
--- NOTE | 2020-03-30 01:19 | REPVR ---
PROCEDURE INFORMATION: Exam: US Right Non-Vascular Joint or Other Extremity Structure, Limited Exam date and time: 03/30/2020 12:44 AM Age: 35 years old Clinical indication: Other: Fluid drainage; Additional info: Pls look at base fifth toe, abscess? TECHNIQUE: Imaging protocol: Right US Non-Vascular Joint or Other Extremity Structure. Limited exam COMPARISON: CR Ankle, complete RIGHT 04/07/2018 1:07 AM FINDINGS: Soft tissues: Complex fluid collection in the 4th interspace measuring 2.2 x 1.3 x 1 cm. There is mild rim hyperemia. Appearance of a cutaneous tract. Suspect an abscess. IMPRESSION: Findings suggestive of an abscess in the 4th interspace with a cutaneous tract as discussed above. Electronically signed by: Rell Sorensen On 03/30/2020 01:19:06 AM
[2020-03-30 01:26] LABS: ERYTHROCYTE SEDIMENTATION RATE 8 mm/hr (0-15)
[2020-03-30] MEDS ORDERED: LIDOCAINE 1% MDV 20ML VIAL IM ONE (01:45)
[2020-03-30] MEDS ORDERED: BACTRIM 160MG/800MG DS TAB PO ONE (01:45)
[2020-03-30] MEDS ORDERED: BACT800T5 PO (01:47)
[2020-03-30] MEDS ORDERED: BACI500O21 TOP (01:50)
[2020-03-30 02:13] VITALS: BP 174/90
== END 2020-03-30 02:14 | disposition home or self-care (01) ==
LOC: M ED 23:39
DX: L03.021 Acute lymphangitis of right finger (principal); J45.909 Unspecified asthma, uncomplicated; F17.210 Nicotine dependence, cigarettes, uncomplicated

== ENCOUNTER 2020-10-09 18:23 | Emergency (ER) | payer OTHER ==
[~2020-10-09] VITALS: Ht 193 cm; Wt 115.1 kg
[~2020-10-09 18:23] MED LIST changes: +BACI500O21 TOP; +BACT800T5 PO
[2020-10-09 18:24] VITALS: BP 143/65
[2020-10-09] MEDS ORDERED: CLOTCRE3 TOP (19:05)
[2020-10-09 20:46] LABS: CHLAMYDIA DNA AMPLIFICATION NEGATIVE (NEGATIVE); GC DNA AMPLIFICATION NEGATIVE (NEGATIVE)
== END 2020-10-09 19:35 | disposition home or self-care (01) ==
LOC: M ED 18:23
DX: B37.49 Other urogenital candidiasis (principal); Z88.1 Allergy status to other antibiotic agents

== ENCOUNTER → 2021-04-01 | Outpatient (CLI) | payer OTHER ==
[~2021-04-01] MED LIST changes: +CLOTCRE3 TOP
--- NOTE | 2021-04-01 10:34 | REP ---
INDICATION: M25.551, RIGHT HIP PAIN COMPARISON: None. TECHNIQUE: AP and frog-lateral views of the right hip FINDINGS: Mild increased sclerosis along the acetabular roof with subtle marginal spurring and trace joint space narrowing noted. IMPRESSION: Mild age-related changes. <Electronically signed by Quentin Carballo > 04/01/21 1036
== END ==
LOC: M CLY 10:06
PROVIDERS: ATTEND Nurse Practitioner Family
DX: M25.551 Pain in right hip (principal)

== ENCOUNTER → 2021-04-23 | Outpatient (CLI) | payer OTHER ==
--- NOTE | 2021-04-23 09:43 | REP ---
INDICATION: PAIN IN RT HIP. COMPARISON: None. TECHNIQUE: Two AP views of the pelvis. FINDINGS: Mild degenerative changes include increased sclerosis to the acetabula with marginal spurring and associated joint space narrowing (right greater than left). No acute fracture or dislocation. 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 <Electronically signed by Quentin Carballo > 04/23/21 0917
== END ==
LOC: M SOG 08:33
PROVIDERS: ATTEND Orthopaedic Surgery Adult Reconstructive Orthopaedic Surgery
DX: M16.0 Bilateral primary osteoarthritis of hip (principal); M25.551 Pain in right hip

== ENCOUNTER 2021-07-09 14:30 | Outpatient (RCR) | payer OTHER ==
[~2021-07-09 14:30] MED LIST changes: -DOXY100C37 PO; +DOXY1CAP62 PO
== END 2021-07-15 ==
LOC: M PT 14:30
PROVIDERS: ATTEND Student in an Organized Health Care Education/Training Program
DX: M25.851 Other specified joint disorders, right hip (principal)

== ENCOUNTER → 2021-09-16 | Outpatient (REF) | payer OTHER ==
[~2021-09-16] MED LIST changes: +DOXY-443 PO; -DOXY1CAP62 PO
== END ==
LOC: M SFHCCLAY 13:50
PROVIDERS: ATTEND Nurse Practitioner Family
DX: Z53.9 Procedure and treatment not carried out, unspecified reason (principal); E55.9 Vitamin D deficiency, unspecified; M25.551 Pain in right hip; I10 Essential (primary) hypertension

== ENCOUNTER → 2021-09-18 | Outpatient (CLI) | payer OTHER ==
--- NOTE | 2021-09-18 16:16 | REP ---
INDICATION: ATRAUMATIC CERVICALGIA. COMPARISON: 12/17/2020 a full series TECHNIQUE: Eight views FINDINGS: Seven views of the cervical spine show no acute fracture, dislocation or subluxation. The intervertebral disc spaces are symmetric and well maintained. The facet joints are well aligned bilaterally. The intervertebral foramina are patent bilaterally and the neural canal is not encroached upon. There is no destructive osseous lesion. Flexion and extension does not appear to be particularly limited radiographically. The anterior spinal soft tissues appear unremarkable. IMPRESSION: Unremarkable cervical spine series. No significant change compared to the prior exam. Since the patient has persistent neck pain MRI of the cervical spine should be considered. <Electronically signed by Giancarlo Reaves > 09/18/21 8022
[2021-09-18 17:20] LABS: ALBUMIN 3.8 GM/DL (3.2-5.2); ALT/SGPT 40 U/L (12-78); BILIRUBIN,TOTAL 0.5 MG/DL (0.2-1.0); BLOOD UREA NITROGEN 15 MG/DL (7-18); CALCIUM LEVEL 9.4 MG/DL (8.5-10.1); CARBON DIOXIDE LEVEL 31 MEQ/L (21-32); CHLORIDE LEVEL 109 MEQ/L (98-107); CREATININE FOR GFR 0.97 MG/DL (0.70-1.30); GLOMERULAR FILTRATION RATE > 60.0 (>60); GLUCOSE, FASTING 96 MG/DL (70-100); POTASSIUM SERUM 4.4 MEQ/L (3.5-5.1); SODIUM LEVEL 142 MEQ/L (136-145); TOTAL PROTEIN 7.2 GM/DL (6.4-8.2)
[2021-09-18 17:28] LABS: TOTAL 25(OH) VITAMIN D 13.6 NG/ML (30.0-100.0)
== END ==
LOC: M RAD 15:43
PROVIDERS: ATTEND Nurse Practitioner Family
DX: E55.9 Vitamin D deficiency, unspecified (principal); M25.551 Pain in right hip; I10 Essential (primary) hypertension

== ENCOUNTER 2021-10-15 04:59 | Emergency (ER) | payer OTHER ==
[~2021-10-15] VITALS: Ht 185.4 cm; Wt 111.4 kg
[2021-10-15 04:59] VITALS: BP 140/80
[2021-10-15] MEDS ORDERED: AMLO1TAB24 (05:04)
== END 2021-10-15 06:29 | disposition left against medical advice (07) ==
LOC: M ED 04:59
DX: Z53.29 Procedure and treatment not carried out because of patient's decision for other reasons (principal)

== ENCOUNTER → 2022-02-04 | Outpatient (CLI) | payer OTHER ==
[~2022-02-04] MED LIST changes: +AMLO1TAB24 PO; +D-101000 PO; +ERGO500029 PO; +OXYC1TAB23 PO
== END ==
LOC: M LABSMTC 09:42
PROVIDERS: ATTEND Anesthesiology
DX: Z01.812 Encounter for preprocedural laboratory examination (principal); Z20.822 Contact with and (suspected) exposure to COVID-19

== ENCOUNTER 2022-02-05 11:53 | Day surgery (SDC) | payer OTHER ==
[~2022-02-05] VITALS: Ht 193 cm; Wt 121.5 kg
[~2022-02-05 11:53] MED LIST changes: +LR 1,000 ML IV ONE; -OXYC1TAB23 PO; +ceFAZolin SOD 2 GM in IV 1 EA IV ONE
[2022-02-05] MEDS ORDERED: propofoL 200 MG/20 ML VIAL As Ordered ONE ×2 (14:05→14:07)
[2022-02-05] MEDS ORDERED: dexameTHASONE 4 MG/ML 1ML VIAL (J1100 PER 1MG) As Ordered ONE (14:06)
[2022-02-05] MEDS ORDERED: LIDOCAINE 2% 100MG/5ML SDV (FOR ANES.) As Ordered ONE (14:06)
[2022-02-05] MEDS ORDERED: ONDANSETRON 4MG/2ML VIAL As Ordered ONE (14:06)
[2022-02-05] MEDS ORDERED: MIDAZOLAM INJ 2MG/2ML VIAL (J2250 PER 1MG) As Ordered ONE (14:09)
[2022-02-05] MEDS ORDERED: fentaNYL 100 MCG/2 ML INJECTION As Ordered ONE (14:09)
[2022-02-05] MEDS ORDERED: BACITRACIN OINTMENT 30GM TUBE As Ordered ONE (14:37)
[2022-02-05] MEDS ORDERED: ACETAMINOPHEN 1000MG 100ML IV BTL (OFIRMEV) (J0131 PER 10MG) As Ordered ONE (15:04)
[2022-02-05] MEDS ORDERED: HYDROmorphone HCL 2MG/ML 1ML VIAL As Ordered ONE (15:06)
[2022-02-05] MEDS ORDERED: OXYC1TAB23 PO (16:20)
[2022-02-05] MEDS ORDERED: ONDANSETRON 4MG/2ML VIAL IV PRN (16:25)
[2022-02-05] MEDS ORDERED: fentaNYL 100 MCG/2 ML INJECTION IV PRN (16:25)
[2022-02-05] MEDS ORDERED: LR 1,000 ML IV SCH (16:25)
[2022-02-05] MEDS ORDERED: PERCOCET 5MG/325MG TAB PO PRN (16:25)
[2022-02-05] MEDS ORDERED: oxyCODONE 5MG TAB PO PRN (16:25)
[2022-02-05 17:38] VITALS: BP 142/74
== END 2022-02-05 17:44 | disposition home or self-care (01) ==
LOC: M SDC 11:53
PROVIDERS: ATTEND Urology
DX: N47.1 Phimosis (principal); N48.29 Other inflammatory disorders of penis; I10 Essential (primary) hypertension; F43.10 Post-traumatic stress disorder, unspecified; Z79.2 Long term (current) use of antibiotics; Z79.899 Other long term (current) drug therapy
CPT/HCPCS: 54161; 88304; J0131; J0690; J1100; J1170; J2250; J2405; J3010

== ENCOUNTER → 2022-05-20 | Outpatient (REF) | payer OTHER ==
[~2022-05-20] MED LIST changes: +ALBU2.5V10 INH; -ALBU83IN INH; -LR 1,000 ML IV ONE; +OXYC1TAB23 PO; -ceFAZolin SOD 2 GM in IV 1 EA IV ONE
[2022-05-20 16:55] LABS: APPEARANCE, URINE HAZY (CLEAR); BACTERIA, URINE AUTO NEGATIVE (NEGATIVE); BILIRUBIN, URINE AUTO NEGATIVE (NEGATIVE); BLOOD, URINE BLOOD NEGATIVE (NEGATIVE); COLOR, URINE YELLOW (YELLOW); GLUCOSE, URINE (UA) AUTO NEGATIVE (NEGATIVE); KETONE, URINE AUTO NEGATIVE (NEGATIVE); LEUKOCYTE ESTERASE, URINE AUTO NEGATIVE (NEGATIVE); MUCUS, URINE SMALL (NEGATIVE); NITRITE, URINE AUTO NEGATIVE (NEGATIVE); PROTEIN, URINE AUTO NEGATIVE (NEGATIVE); RBC, URINE AUTO 1 /HPF (0-3); SPECIFIC GRAVITY URINE AUTO 1.017 (1.002-1.035); SQUAMOUS EPITHELIAL CELL UR AU 3 /HPF (0-6); UROBILINOGEN, URINE AUTO 0.2 mg/dL (0.0-2.0); WBC, URINE AUTO 4 /HPF (0-3)
[2022-05-20 17:48] LABS: HEPATITIS B CORE ANTIBODY IGM NEGATIVE (NEGATIVE); HEPATITIS B SURFACE ANTIGEN NEGATIVE (NEGATIVE); HEPATITIS C VIRUS ABY INDEX 0.3 INDEX (<0.8); HIV 1&2 SCREEN CENTAUR NEGATIVE (NEGATIVE)
[2022-05-20 18:06] LABS: GC DNA AMPLIFICATION NEGATIVE (NEGATIVE)
== END ==
LOC: M SFHCCLAY 11:19
PROVIDERS: ATTEND Nurse Practitioner Family
DX: Z71.1 Person with feared health complaint in whom no diagnosis is made (principal)

== ENCOUNTER → 2022-08-19 | Outpatient (REF) | payer OTHER ==
[2022-08-19 18:41] LABS: BASO # 0.1 10^3/uL (0.0-0.2); BASO % 1.2 % (0.0-1.0); EOS # 0.6 10^3/uL (0.0-0.5); EOS % 7.9 % (0.0-3.0); HEMATOCRIT 45.3 % (42.0-52.0); HEMOGLOBIN 14.6 g/dl (13.5-17.5); LYMPH # 2.7 10^3/uL (1.5-5.0); LYMPH % 34.6 % (24.0-44.0); MEAN CORPUSCULAR HEMOGLOBIN 29.1 pg (27.0-33.0); MEAN CORPUSCULAR HGB CONC 32.2 g/dl (32.0-36.5); MEAN CORPUSCULAR VOLUME 90.2 fl (80.0-96.0); MONO # 0.5 10^3/uL (0.0-0.8); MONO % 6.4 % (2.0-8.0); NEUTROPHILS # 3.8 10^3/uL (1.5-8.5); NEUTROPHILS % 49.6 % (36.0-66.0); PLATELET COUNT, AUTOMATED 372 10^3/uL (150-450); RED BLOOD COUNT 5.02 10^6/uL (4.30-6.10); WHITE BLOOD COUNT 7.7 10^3/uL (4.0-10.0)
[2022-08-19 19:38] LABS: ALBUMIN 3.9 GM/DL (3.2-5.2); ALT/SGPT 31 U/L (12-78); BILIRUBIN,TOTAL 0.5 MG/DL (0.2-1.0); BLOOD UREA NITROGEN 11 MG/DL (7-18); CALCIUM LEVEL 9.4 MG/DL (8.5-10.1); CARBON DIOXIDE LEVEL 31 MEQ/L (21-32); CHLORIDE LEVEL 107 MEQ/L (98-107); CHOLESTEROL LEVEL 144 MG/DL (<200); CHOLESTEROL RISK RATIO 2.322 (<5); CREATININE FOR GFR 0.93 MG/DL (0.70-1.30); FREE T4 1.03 NG/DL (0.76-1.46); GLOMERULAR FILTRATION RATE > 60.0 (>60); GLUCOSE, FASTING 78 MG/DL (70-100); HDL CHOLESTEROL 62 MG/DL (>40); LDL CHOLESTEROL 71 MG/DL (<100); NON-HDL-C 82 MG/DL; POTASSIUM SERUM 4.8 MEQ/L (3.5-5.1); SODIUM LEVEL 140 MEQ/L (136-145); THYROID STIMULATING HORMONE 0.685 uIU/ML (0.358-3.740); TOTAL PROTEIN 7.1 GM/DL (6.4-8.2); TRIGLYCERIDES LEVEL 57 MG/DL (<150)
[2022-08-19 20:24] LABS: TOTAL 25(OH) VITAMIN D 21.7 NG/ML (30.0-100.0)
== END ==
LOC: M SFHCCLAY 11:23
PROVIDERS: ATTEND Nurse Practitioner Family
DX: E55.9 Vitamin D deficiency, unspecified (principal)

== ENCOUNTER → 2022-09-17 | Outpatient (CLI) | payer OTHER | LOC: M PLARAD 15:05 | PROVIDERS: ATTEND Nurse Practitioner Family | DX: R29.898 Other symptoms and signs involving the musculoskeletal system (principal); M48.061 Spinal stenosis, lumbar region without neurogenic claudication; M51.27 Other intervertebral disc displacement, lumbosacral region ==

== ENCOUNTER → 2022-10-27 | Outpatient (REF) | payer OTHER ==
[2022-10-27 18:35] LABS: GC DNA AMPLIFICATION NEGATIVE (NEGATIVE)
== END ==
LOC: M SFHCPLAZ 16:36
PROVIDERS: ATTEND Physician Assistant
DX: R36.9 Urethral discharge, unspecified (principal); Z72.51 High risk heterosexual behavior

== ENCOUNTER 2023-09-05 08:16 | Emergency (ER) | payer OTHER ==
[~2023-09-05] VITALS: Ht 193 cm; Wt 127.3 kg
[2023-09-05 09:56] VITALS: BP 153/74; TEMP 98.1; O2SAT 100
== END 2023-09-05 10:01 | disposition home or self-care (01) ==
LOC: M ED 08:16
DX: M25.571 Pain in right ankle and joints of right foot (principal); M79.671 Pain in right foot; I10 Essential (primary) hypertension; J45.909 Unspecified asthma, uncomplicated; F12.90 Cannabis use, unspecified, uncomplicated

== ENCOUNTER → 2023-09-22 | Outpatient (REF) | payer OTHER | LOC: M SFHCCLAY 11:12 | PROVIDERS: ATTEND Nurse Practitioner Family | DX: Z53.9 Procedure and treatment not carried out, unspecified reason (principal); I10 Essential (primary) hypertension; E55.9 Vitamin D deficiency, unspecified; F17.200 Nicotine dependence, unspecified, uncomplicated ==

== ENCOUNTER → 2023-10-12 | Outpatient (CLI) | payer OTHER | LOC: M PLAIMG 09-23 07:09 | PROVIDERS: ATTEND Physician Assistant | DX: M25.571 Pain in right ankle and joints of right foot (principal) ==

== ENCOUNTER → 2024-03-22 | Outpatient (REF) | payer OTHER ==
[~2024-03-22] MED LIST changes: +DOXY-323 PO; -DOXY-443 PO
[2024-03-22 17:21] LABS: BASO # 0.1 10^3/uL (0.0-0.2); BASO % 1.2 % (0.0-1.0); EOS # 0.5 10^3/uL (0.0-0.5); EOS % 6.4 % (0.0-3.0); HEMATOCRIT 45.3 % (42.0-52.0); HEMOGLOBIN 15.1 g/dl (13.5-17.5); LYMPH # 2.6 10^3/uL (1.5-5.0); LYMPH % 31.1 % (24.0-44.0); MEAN CORPUSCULAR HEMOGLOBIN 29.2 pg (27.0-33.0); MEAN CORPUSCULAR HGB CONC 33.3 g/dl (32.0-36.5); MEAN CORPUSCULAR VOLUME 87.6 fl (80.0-96.0); MONO # 0.5 10^3/uL (0.0-0.8); MONO % 6.4 % (2.0-8.0); NEUTROPHILS # 4.6 10^3/uL (1.5-8.5); NEUTROPHILS % 54.5 % (36.0-66.0); PLATELET COUNT, AUTOMATED 360 10^3/uL (150-450); RED BLOOD COUNT 5.17 10^6/uL (4.30-6.10); WHITE BLOOD COUNT 8.4 10^3/uL (4.0-10.0)
[2024-03-22 17:45] LABS: ALBUMIN 3.9 G/DL (3.2-5.2); ALKALINE PHOSPHATASE 106 U/L (46-116); ALT/SGPT 36 U/L (7.0-40); AST/SGOT 22 U/L (<34); BILIRUBIN,TOTAL 0.4 MG/DL (0.3-1.2); BLOOD UREA NITROGEN 12 MG/DL (9-23); CALCIUM LEVEL 9.7 MG/DL (8.5-10.1); CARBON DIOXIDE LEVEL 31 MMOL/L (20-31); CHLORIDE LEVEL 105 MMOL/L (98-107); CHOLESTEROL LEVEL 172 MG/DL (<200); CREATININE FOR GFR 0.91 MG/DL (0.70-1.30); GLOMERULAR FILTRATION RATE > 60.0 (>60); GLUCOSE, FASTING 76 MG/DL (60-100); HDL CHOLESTEROL 53.6 MG/DL (>40); LDL CHOLESTEROL 93.6 MG/DL (<100); NON-HDL-C 118.4 MG/DL; POTASSIUM SERUM 4.5 MMOL/L (3.5-5.1); SODIUM LEVEL 138 MMOL/L (136-145); TOTAL PROTEIN 7.1 G/DL (5.7-8.2); TRIGLYCERIDES LEVEL 124 MG/DL (<150)
[2024-03-22 17:49] LABS: FREE T4 1.07 NG/DL (0.89-1.76); THYROID STIMULATING HORMONE 0.613 uIU/ML (0.55-4.78); TOTAL 25(OH) VITAMIN D 10.8 NG/ML (20.0-100.0)
== END ==
LOC: M SFHCCLAY 10:09
PROVIDERS: ATTEND Nurse Practitioner Family
DX: I10 Essential (primary) hypertension (principal); E55.9 Vitamin D deficiency, unspecified; F17.200 Nicotine dependence, unspecified, uncomplicated

== ENCOUNTER → 2025-08-30 | Outpatient (REF) | payer OTHER ==
[~2025-08-30] MED LIST changes: -DOXY-323 PO; +DOXY-441 PO
== END ==
LOC: M LAB REF 12:13
PROVIDERS: ATTEND Physician Assistant
DX: B34.9 Viral infection, unspecified (principal)